=== PATIENT | male | born 1985 | race Caucasian/White ===

== ENCOUNTER 2022-12-09 19:50 | Emergency (ER) | payer SELFPAY ==
--- NOTE | 2022-12-09 19:52 | PC.NURSE ---
This pt walked into ER and brought to Rm 1, he stated he is feeling lost and unsure how to get back home to [place], [place]. When asking pt. if he needed medical attention, he stated no, I just have no money, no phone and am unsure where I am and need some direction. He also stated he is out of some of his meds. Asked pt if he was feeling SI/HI he stated no I just need some clarity . This Rn offered to have ERP assess him and check out that everything is ok and he stated no sorry I don't want to waste your time and he walked out and left ER stating he wasn't needing any medical help. Pt left ER about 3 min. p arriving.
--- NOTE | 2022-12-13 07:33 | ED_ITS ---
HPI - General Adult General Chief complaint: Unspecified Stated complaint: Lost on how to get back to [facility]. Discharge Plan Discharge Patient Disposition: Left Without Being Seen Follow-up/Referrals: UNKNOWN,DOCTOR [Primary Care Provider] -
== END 2022-12-09 19:52 | disposition left against medical advice (07) ==
LOC: CHSED 12-11 10:12
PROVIDERS: Emergency Provider Internal Medicine Critical Care Medicine
DX: Z53.21 Procedure and treatment not carried out due to patient leaving prior to being seen by health care provider (principal)
CPT/HCPCS: 99199